=== PATIENT | male | born 1980 | race Caucasian/White ===

== ENCOUNTER 2023-05-25 14:19 | Emergency (ER) | payer OTHER ==
[2023-05-25 14:51] VITALS: BP 121/77; PULSE 85; TEMP 98.2; BMI 27.3
[2023-05-25] MEDS ORDERED: FLUORESCEIN NA 1 EA STRIP OS ONE (15:09)
[2023-05-25] MEDS ORDERED: FLUORESCEIN NA 1 EA STRIP ONE (15:25)
[2023-05-25 16:42] VITALS: RESP 16
== END 2023-05-25 17:03 | disposition short-term general hospital (02) ==
LOC: JER 14:19
PROC: 08C1XZZ Extirpation of Matter from Left Eye, External Approach (ICD-10-PCS; principal; 2023-05-25)
DX: H57.12 Ocular pain, left eye (principal); T15.02XA Foreign body in cornea, left eye, initial encounter
CPT/HCPCS: 99285-25